=== PATIENT | female | born 1960 | race Caucasian/White ===

== ENCOUNTER 2017-04-11 10:12 | Emergency (ER) | payer OTHER ==
[~2017-04-11] VITALS: Ht 177.8 cm; Wt 74.8 kg
[2017-04-11] MEDS ORDERED: ACETAMINOPHEN 500 MG TAB PO ONE ×2 (10:17→10:30)
[2017-04-11 11:33] VITALS: BP 95/59
[2017-04-11] MEDS ORDERED: ONDANSETRON HCL 4 MG/2 ML VIAL IM ONE (12:00)
[2017-04-11] MEDS ORDERED: HYDROmorphone HCL 2 MG/ML VL IM ONE (12:00)
== END 2017-04-11 12:59 | disposition home or self-care (01) ==
LOC: ER 10:12
DX: S52.502A Unspecified fracture of the lower end of left radius, initial encounter for closed fracture (principal); S52.615A Nondisplaced fracture of left ulna styloid process, initial encounter for closed fracture; W01.0XXA Fall on same level from slipping, tripping and stumbling without subsequent striking against object, initial encounter; Y93.89 Activity, other specified; Y99.8 Other external cause status; Y92.89 Other specified places as the place of occurrence of the external cause
CPT/HCPCS: 29125; 73110; 96372; 99284; J1170; J2405

== ENCOUNTER 2019-05-31 16:47 | Emergency (ER) | payer OTHER ==
[~2019-05-31] VITALS: Ht 170.2 cm; Wt 71.2 kg
[2019-05-31 17:19] LABS: Mean Corpuscular Hemoglobin 27.4 pg (28.0-32.0)
[2019-05-31 17:21] LABS: Hemoglobin 11.8 g/dL (12.2-16.2); Mean Corpuscular Hgb Conc. 32.8 g/dL (32.0-36.0); Mean Corpuscular Volume 83.5 fL (80.0-100.0); Platelet Count (auto) 275 10^3/uL (140-450); Red Blood Cells 4.31 10^6/uL (4.0-5.20); Red Cell Distribution Width 16.4 % (11.8-14.3)
[2019-05-31 17:30] LABS: Basophils % (manual) 0 (0.0-2.0); Blast Cells 0; Eosinophils % (manual) 0 (0-7); Metamyelocytes % 0; Myelocytes % 0; Promyelocytes % 0; Reactive Lymphocytes 0
[2019-05-31 17:32] LABS: Albumin 2.7 g/dL (3.4-5.0); Calcium 8.7 mg/dL (8.5-10.1); Potassium 3.9 mmol/L (3.5-5.1)
[2019-05-31 17:42] LABS: BUN/Creatinine Ratio 12.2; Bilirubin, Total 0.6 mg/dL (0.2-1.0); Total Protein 8.2 g/dL (6.4-8.2)
[2019-05-31 18:03] LABS: Band Neutrophils % (manual) 9; Lymphocytes % (manual) 3 (10.0-50.0); Monocytes % (manual) 5 (0-12)
[2019-05-31] MEDS ORDERED: SODIUM CHLORIDE 0.9% 1,000 ML IV ONE (18:09)
[2019-05-31] MEDS ORDERED: methylPREDNISolone SOD SUCC 125 MG/2 ML VL IV ONE (18:15)
[2019-05-31] MEDS ORDERED: diphenhdrAMINE HCL 50 MG/1 ML VL IV ONE (18:15)
[2019-05-31] MEDS ORDERED: PIPERACILLIN-TAZOB 3.375GM 100 ML IV ONE (18:15)
[2019-05-31] MEDS ORDERED: LORazepam 2MG/ML-1ML VIAL IV ONE (19:00)
[2019-05-31] MEDS ORDERED: KETOROLAC TROMETH 30 MG/ML 1ML VIAL IV ONE (19:30)
[2019-06-01] MEDS ORDERED: MORPHINE SULFATE 4 MG/ML SYR/VIAL IV ONE (01:15)
[2019-06-01] MEDS ORDERED: ONDANSETRON HCL 4 MG/2 ML VIAL IV ONE (01:15)
[2019-06-01 03:06] VITALS: BP 92/62
== END 2019-06-01 04:06 | disposition short-term general hospital (02) ==
LOC: EDBD 16:47 → ER 16:52
DX: J03.90 Acute tonsillitis, unspecified (principal); D72.829 Elevated white blood cell count, unspecified; R53.1 Weakness; Z90.710 Acquired absence of both cervix and uterus; Z90.89 Acquired absence of other organs; Z88.6 Allergy status to analgesic agent
CPT/HCPCS: 36415; 70490; 71046; 80053; 83605; 85007; 85027; 87040; 87070; 87077; 87186; 87880; 96365; 96366; 96375; 99285; J1200; J1885; J2060; J2270; J2405; J2543; J2930; J7030